=== PATIENT | female | born 1980 | race Caucasian/White ===

== ENCOUNTER 2017-09-18 14:47 | Observation (INO) | payer BC, SELFPAY ==
[2017-09-18 13:26] VITALS: BMI 26.4
--- NOTE | 2017-09-18 14:42 | PC.NURSE ---
Patient received 2 liters lactated ringers. Patient reports no improvements in condition and wishes to be admited. Dr. León notified. start vs as follows;109/76 hr-82, temp-98.3. Post bolus vs - BP-115/77, HR-78 Oz-95% Temp-98.3. Dr. León to admit patient. Roslyn Desir called with admission order and room number 265. report called to Bret Bermudez RN. patient transported via wheelchair to room. patient stable
[2017-09-18 14:48] VITALS: BMI 26.4
[2017-09-18 15:08] VITALS: BP 138/68; PULSE 91; RESP 18; TEMP 36.9; O2SAT 96
--- NOTE | 2017-09-18 15:27 | XR_ITS ---
XR chest 2V Ordering Physician: Jarett León MD Patient Age: 36 years: Female HISTORY: ITS.REASON: Shortness of breath Positive for flU. TECHNIQUE: PA and lateral chest COMPARISON :Previous rib series 02/18/2016 FINDINGS No consolidation or prominent findings. Upper normal markings at bases most likely reflecting overlying breast density and mild chronic changes along with the high contrast initial image technique. The left danny is upper normal prominence. Right danny generous but normal. Heart is normal in size. No CHF no pleural effusion or vascular congestion. Chest wall and T-spine unremarkable There are some scattered tiny calcified granuloma seen at the lung [place] bilaterally which are stable since prior rib series chest views IMPRESSION: Nothing definitely acute. Upper normal prominence of lung markings towards bases may reflect overlapping breast density & technique. Left danny upper normal prominence but likely stable.
--- NOTE | 2017-09-18 16:11 | HMH.HP ---
*Admission Date: 09/18/17 <ToniRhonda Wood 09/18/17 16:45> *Chief complaint: sore throat and cough <Rhonda Muñoz 09/18/17 16:45> *History of present illness: Ms Paz is a 36 year old female who is usually healthy who presented to the office of [facility] of 2-3 days duration of sore throat, non-productive cough, and fever . Her son was diagnosed with the Flu last week and she developed symptoms 09/16/17. She shared his Tamiflu but then became worse. Fever was high at 103.6. She was also SOB with wheezing, chest tightness, headache, and syncopal episodes for unknown duration. She describes some vomiting but no diarrhea. She has had minimal PO fluid intake for 2 days. She was seen in the office of [facility] on this date and sent to [facility] for IVF for dehydration. CBC revealed a WBC of 4.2 with 60.1% Grans and 33.2 % Lymphs. AFter receiving the IVF she did not feel any better. She voided x1. She continue with the severe headache, sore throat and cough. She was thus admitted for further evaluation and treatment. <Rhonda Muñoz 09/18/17 16:45> [facility] History I have reviewed the patient's past medical history: Yes <Rhonda Muñoz 09/18/17 16:45> Medical History: Reports:: Gastroesophageal Reflux Disease(GERD) Denies:: Atherosclerotic Heart Disease, Congestive Heart Failure, Chronic Obstructive Pulmonary Disease (COPD), Coronary Artery Disease, Cerebrovascular Accident, Depression, Diabetes Mellitus Type 2, Hypertension, Lung Disease, Palpitations, Transient Ischemic Attacks (TIA) <Rhonda Muñoz 09/18/17 16:45> Other Medical History: Reports: Hoarseness. Denies: Arthritis, Hypothyroidism <Rhonda Muñoz 09/18/17 16:45> Comment: bilateral bunionectomy 2014 <Rhonda Muñoz 09/18/17 16:45> - *Social History Smoking Status: Current every day smoker <Rhonda Muñoz 09/18/17 16:45> Tobacco Type: cigarettes <Rhonda Muñoz 09/18/17 16:45> # Packs/Day (cigarettes): 1 <Rhonda Muñoz 09/18/17 16:45> Alcohol Intake: never <Rhonda Muñoz 09/18/17 16:45> *Family Hx:: Hypertension <Rhonda Muñoz 09/18/17 16:45> Comment: premature ovarian failure at age 30 <Rhonda Muñoz 09/18/17 16:45> Review of Systems - Constitutional Reports body ache(s), Reports fatigue, Reports fever(s), Reports headache(s) <ToniRhonda 09/18/17 16:45> - ENT Reports headache(s), Reports sore throat <ToniRhonda 09/18/17 16:45> - *Cardiovascular Reports chest pain, Reports shortness of breath, Reports lightheadedness, Reports fainting, Denies irregular heart rhythm, Denies leg swelling <Zena Muñozhy 09/18/17 16:45> - *Respiratory Reports chest congestion, Reports cough, Reports shortness of breath, Reports pain with cough, Reports wheezing, Denies coughing up blood <Zena Muñozhy 09/18/17 16:45> - *Gastrointestinal Reports heartburn, Denies abdominal pain, Denies coffee ground vomit, Denies constipation, Denies loose stools, Denies nausea <Zena Muñozhy 09/18/17 16:45> - *Genitourinary Denies urinary incontinence, Denies urinary urgency <ToniRhonda 09/18/17 16:45> Comments: decrease in UOP <ToniRhonda 09/18/17 16:45> - *Musculoskeletal Reports muscle cramps (legs), Reports muscle weakness, Reports body aches <[facility] 09/18/17 16:45> - *Neurologic Reports abnormal walking, Reports fainting, Reports dizziness, Reports weakness <ToniRhonda 09/18/17 16:45> Meds Allergies Allergy/AdvReac Type Severity Reaction Status Date / Time No Known Allergies Allergy Unverified 08/01/17 15:16 <Jarett León - 09/18/17 17:34> Exam Vital signs and Labs for Last 24 Hours: Temp Pulse Resp BP Pulse Ox 98.5 F 91 H 18 138/68 96 09/18/17 15:08 09/18/17 15:08 09/18/17 15:08 09/18/17 15:08 09/18/17 15:08 Laboratory Results - last 24 hr 09/18/17 15:45: WBC 5.0, RBC 4.09 L, Hgb 12.1 L, Hct 37.0, MCV 90.5, MCH 29.5, MCHC 32.6, RDW 12.9, Plt Count 196, MPV 7.5, Neut % (Auto) 52.4
--- NOTE | 2017-09-18 16:15 | PC.NURSE ---
NICOL VALDEZ APRN IS AT THE BEDSIDE SPEAKING TO THE PATIENT.
[2017-09-18 16:24] LABS: Basophils % 0.2 % (0.1-2.0); Eosinophils # 0.1 K/mm3 (0.0-0.4); Eosinophils % 2.7 % (0.1-12.0); Hemoglobin 12.1 g/dL (12.2-16.2); Lymphocytes % 39.6 K/mm3 (10-50); Mean Corpuscular HGB Conc 32.6 g/dL (31.8-35.4); Mean Corpuscular Hemoglobin 29.5 pg (27.0-31.2); Mean Corpuscular Volume 90.5 fl (81-99); Mean Platelet Volume 7.5 fl (7.4-10.4); Monocytes # 0.3 K/mm3 (0.1-1.0); Monocytes % 5.1 % (1.7-9.3); Neutrophils # 2.6 K/mm3 (1.8-7.8); Neutrophils % 52.4 % (37.0-80.0); Platelet Count 196 K/mm3 (142-424); Red Blood Count 4.09 M/mm3 (4.20-5.40); Red Cell Distribution Width 12.9 % (11.5-17.5)
--- NOTE | 2017-09-18 16:26 | P.HP_ITS ---
*Admission Date: 09/18/17 <ToniRhonda Wood 09/18/17 16:45> *Chief complaint: sore throat and cough <Rhonda Muñoz 09/18/17 16:45> *History of present illness: Ms Paz is a 36 year old female who is usually healthy who presented to the office of [facility] of 2-3 days duration of sore throat, non-productive cough, and fever . Her son was diagnosed with the Flu last week and she developed symptoms 09/16/17. She shared his Tamiflu but then became worse. Fever was high at 103.6. She was also SOB with wheezing, chest tightness, headache, and syncopal episodes for unknown duration. She describes some vomiting but no diarrhea. She has had minimal PO fluid intake for 2 days. She was seen in the office of [facility] on this date and sent to [facility] for IVF for dehydration. CBC revealed a WBC of 4.2 with 60.1% Grans and 33.2 % Lymphs. AFter receiving the IVF she did not feel any better. She voided x1. She continue with the severe headache, sore throat and cough. She was thus admitted for further evaluation and treatment. <Rhonda Muñoz 09/18/17 16:45> [facility] History I have reviewed the patient's past medical history: Yes <Rhonda Muñoz 09/18 16:45> Medical History: Reports:: Gastroesophageal Reflux Disease(GERD) Denies:: Atherosclerotic Heart Disease, Congestive Heart Failure, Chronic Obstructive Pulmonary Disease (COPD), Coronary Artery Disease, Cerebrovascular Accident, Depression, Diabetes Mellitus Type 2, Hypertension, Lung Disease, Palpitations, Transient Ischemic Attacks (TIA) <Rhonda Muñoz 09/18/17 16:45 > Other Medical History: Reports: Hoarseness. Denies: Arthritis, Hypothyroidism <Rhonda Muñoz 09/18/17 16:45> Comment: bilateral bunionectomy 2014 <Rhonda Muñoz 09/18/17 16:45> - *Social History Smoking Status: Current every day smoker <Rhonda Muñoz 09/18/17 16:45> Tobacco Type: cigarettes <Rhonda Muñoz 09/18/17 16:45> # Packs/Day (cigarettes): 1 <Rhonda Muñoz 09/18/17 16:45> Alcohol Intake: never <Rhonda Muñoz 09/18/17 16:45> *Family Hx:: Hypertension <Rhonda Muñoz 09/18/17 16:45> Comment: premature ovarian failure at age 30 <Zena Muñozhy 09/18/17 16:45> Review of Systems - Constitutional Reports body ache(s), Reports fatigue, Reports fever(s), Reports headache(s) < Zena Muñozhy 09/18/17 16:45> - ENT Reports headache(s), Reports sore throat <ToniRhonda 09/18/17 16:45> - *Cardiovascular Reports chest pain, Reports shortness of breath, Reports lightheadedness, Reports fainting, Denies irregular heart rhythm, Denies leg swelling <Toni Rhonda 09/18/17 16:45> - *Respiratory Reports chest congestion, Reports cough, Reports shortness of breath, Reports pain with cough, Reports wheezing, Denies coughing up blood <ToniRhonda 09/18/17 16:45> - *Gastrointestinal Reports heartburn, Denies abdominal pain, Denies coffee ground vomit, Denies constipation, Denies loose stools, Denies nausea <ToniRhonda 09/18/17 16: 45> - *Genitourinary Denies urinary incontinence, Denies urinary urgency <ToniRhonda 09/18/17 16:45> Comments: decrease in UOP <ToniRhonda 09/18/17 16:45> - *Musculoskeletal Reports muscle cramps (legs), Reports muscle weakness, Reports body aches < MuñozRhonda 09/18/17 16:45> - *Neurologic Reports abnormal walking, Reports fainting, Reports dizziness, Reports weakness <ToniRhonda 09/18/17 16:45> Meds Allergies Allergy/AdvReac Type Severity Reaction Status Date / Time No Known Allergies Allergy Unverified 08/01/17 15:16 <Jarett León - 09/18/17 17:34>
[2017-09-18 16:33] LABS: Alanine Aminotransferase 21 U/L (12-78); Albumin Level 3.3 gm/dL (3.4-5.0); Alkaline Phosphatase 61 U/L (46-116); Anion Gap 9.9 mEq/L (5-15); Aspartate Amino Transferase 14 U/L (15-37); Bilirubin,Total 0.2 mg/dL (0.2-1.0); Blood Urea Nitrogen 7 mg/dL (7-18); Calcium 8.6 mg/dL (8.5-10.1); Carbon Dioxide 29 mmol/L (21.0-32.0); Chloride 105 mmol/L (98-107); Creatinine Clearance Estimated 107 mL/min (0-300); Creatinine,Serum 0.73 mg/dL (0.55-1.02); Estimated Glomerular Filt Rate 90 ml/min (>60); GFR (African American) 109 ML/MIN (>60); Globulin 3.3 gm/dl (1.3-3.2); Glucose 80 mg/dL (74-106); Potassium 3.9 mmoL/L (3.5-5.1); Sodium 140 mmol/L (136-145); Total Protein,Serum 6.6 gm/dL (6.4-8.2)
[2017-09-18 19:56] VITALS: PULSE 77; PULSE 78
[2017-09-18 20:00] VITALS: O2SAT 94
[2017-09-19] VITALS: BP 91/56; PULSE 61; RESP 16; TEMP 36.4; O2SAT 94
[2017-09-19 04:00] VITALS: BP 89/55; PULSE 61; RESP 18; TEMP 36.7
[2017-09-19 06:20] VITALS: PULSE 61; PULSE 63
[2017-09-19 06:29] LABS: Strep Scrn Group A (Rapid) Negative (Negative)
--- NOTE | 2017-09-19 07:26 | P.CONPHA_ITS ---
[facility] Pharmacy VTE Monitoring - Patient Demographics Admission date: 09/18/17 Report Date: 09/19/17 Time: 07:26 Allergies/Adverse Reactions: Patient Allergies No Known Allergies Allergy (Unverified 08/01/17 15:16) Height: 1.55 m Weight: 63.503 kg Patient Problems: Current Active Problems Influenza A (Acute) Dehydration (Acute) Sleep disorder (Chronic) - VTE Risk Labs: VTE Related Lab Results Hgb 12.1 g/dL (12.2-16.2) L 09/18/17 15:45 Hct 37.0 % (37.0-47.0) 09/18/17 15:45 Plt Count 196 K/mm3 (142-424) 09/18/17 15:45 BUN 7 mg/dL (7-18) 09/18/17 15:45 Creatinine 0.73 mg/dL (0.55-1.02) 09/18/17 15:45 Estimated Creat Clear 107 mL/min (0-300) 09/18/17 15:45 Was VTE Risk Assessment Performed: Yes VTE Score: 1 VTE Risk Level: Very Low Risk Clinical Trial Participant: No - Prophylaxis VTE Prophylaxis Ordered?: Yes Types of VTE Prophylaxis: TEDS Knee High
[2017-09-19 08:00] VITALS: BP 89/54; RESP 18; TEMP 36.7; O2SAT 94
--- NOTE | 2017-09-19 08:06 | HMH.ACPN2 ---
<Rhonda Muñoz - Last Filed: 09/19/17 08:06> Internal Medicine - PN: Subj *Date: 09/19/17 *Time: 08:06 Interval history: Patient did not sleep much last night due to cough and headache; she has just moved down from ICU to regular room on second floor; she fell prior to the move states she tripped over her IV tubing; she landed on her right knee; she states it does not hurt at present; had pain medicine and cough medicine as frequently as is ordered; she is voiding QS; bowels have not moved; she states she vomited ?2 yesterday; dry cough remains very frequent causing her to burn in her chest and with soreness in her abdomen Exam Vital signs and Labs for Last 24 Hours: Temp Pulse Resp BP Pulse Ox 98.1 F 63 18 89/54 94 L 09/19/17 08:00 09/19/17 06:20 09/19/17 08:00 09/19/17 08:00 09/19/17 08:00 Laboratory Results - last 24 hr 09/18/17 15:45: WBC 5.0, RBC 4.09 L, Hgb 12.1 L, Hct 37.0, MCV 90.5, MCH 29.5, MCHC 32.6, RDW 12.9, Plt Count 196, MPV 7.5, Neut % (Auto) 52.4, Lymph % (Auto) 39.6, [place] % (Auto) 5.1, Eos % (Auto) 2.7, Baso % (Auto) 0.2, Neut # (Auto) 2.6, Lymph # (Auto) 2.0, [place] # (Auto) 0.3, Eos # (Auto) 0.1, Baso # (Auto) 0.0 09/18/17 15:45: Sodium 140, Potassium 3.9, Chloride 105, Carbon Dioxide 29, Anion Gap 9.9, BUN 7, Creatinine 0.73, Estimated Creat Clear 107, Estimated GFR 90, Est GFR ( Amer) 109, Glucose 80, Calcium 8.6, Total Bilirubin 0.2, AST 14 L, ALT 21, Alkaline Phosphatase 61, Total Protein 6.6, Albumin 3.3 L, Globulin 3.3 H, Albumin/Globulin Ratio 1.0 L 09/19/17 05:20: Group A Strep Rapid Negative I & O for Last 24 hours: Intake & Output 09/16/17 09/17/17 09/18/17 09/19/17 11:59 11:59 11:59 11:59 Intake Total 1000 / 1000 Balance 1000 / 1000 Weight 140 lb - Constitutional no acute distress Comments: Eyes appear more clear this morning: She is awake and appears comfortable in the bed; she does continue with dry cough - *Routine Respiratory Exam Present: wheezes. Absent: crackles Comments: Minimal wheeze bilaterally - *Routine Cardiovascular Exam Present: RRR - *Routine Abdominal Exam Present: soft, normoactive bowel sounds, tenderness (Mild and diffuse) - *Routine Extremities Exam Present: full ROM. Absent: edema Comments: Right knee at site of fall is minimally tender without erythema or edema; full range of motion - *Routine Neurological Exam Present: alert, oriented X3 Assessment and Plan (1) Influenza A Current visit: Yes Status: Acute Category: Medical Code(s): J10.1 - Influenza due to other identified influenza virus with other respiratory manifestations (2) Dehydration Current visit: Yes Status: Acute Category: Medical Code(s): E86.0 - Dehydration (3) Sleep disorder Current visit: Yes Status: Chronic Category: Medical Code(s): G47.9 - Sleep disorder, unspecified - Assessment and plan all Dx Assessment and Plan for all problems:: She still has symptoms associated with the flu; we will continue with IV fluids and meds for cough and headache; possibly home some time today; will add Tessalon Perles for cough <Jarett León - Last Filed: 09/19/17 11:25> Internal Medicine - PN: Subj *Date: 09/19/17 *Time: 11:25 Exam Vital signs and Labs for Last 24 Hours: Temp Pulse Resp BP Pulse Ox 98.1 F 75 18 89/54 94 L 09/19/17 08:00 09/19/17 09:49 09/19/17 08:00 09/19/17 08:00 09/19/17 08:00 Laboratory Results - last 24 hr 09/18/17 15:45: WBC 5.0, RBC 4.09 L, Hgb 12.1 L, Hct 37.0, MCV 90.5, MCH 29.5, MCHC 32.6, RDW 12.9, Plt Count 196, MPV 7.5, Neut % (Auto) 52.4, Lymph % (Auto) 39.6, [place] % (Auto) 5.1, Eos % (Auto) 2.7, Baso % (Auto) 0.2, Neut # (Auto) 2.6, Lymph # (Auto) 2.0, [place] # (Auto) 0.3, Eos # (Auto) 0.1, Baso # (Auto) 0.0 09/18/17 15:45: Sodium 140, Potassium 3.9, Chloride 105, Carbon Dioxide 29, Anion Gap 9.9, BUN 7, Creatinine 0.73, Estimated Creat Clear 107, Estimated GF
[2017-09-19 09:49] VITALS: PULSE 70; PULSE 75
--- NOTE | 2017-09-20 08:22 | HMH.DCSUM ---
General - General Admission date: 09/18/17 Discharge date: 09/19/17 HPI HPI: Ms Paz is a 36 year old female who is usually healthy who presented to the office of [facility] of 2-3 days duration of sore throat, non-productive cough, and fever . Her son was diagnosed with the Flu last week and she developed symptoms 09/16/17. She shared his Tamiflu but then became worse. Fever was high at 103.6. She was also SOB with wheezing, chest tightness, headache, and syncopal episodes for unknown duration. She describes some vomiting but no diarrhea. She has had minimal PO fluid intake for 2 days. She was seen in the office of [facility] on this date and sent to [facility] for IVF for dehydration. CBC revealed a WBC of 4.2 with 60.1% Grans and 33.2 % Lymphs. AFter receiving the IVF she did not feel any better. She voided x1. She continued with the severe headache, sore throat and cough. She was thus admitted for further evaluation and treatment. Objective Vital signs: Temp Pulse Resp BP Pulse Ox 98.1 F 75 18 89/54 94 L 09/19/17 08:00 09/19/17 09:49 09/19/17 08:00 09/19/17 08:00 09/19/17 08:00 Narrative: - Constitutional no acute distress Comments: appears not to feel well - *Routine HEENT Exam Head: Present: normocephalic, atraumatic Eye: Present: EOMI, PERRL. Absent: conjunctival icterus, scleral injection ENT: Present: mucous membranes moist, oropharynx clear, nares patent, sinus tenderness - *Routine Neck Exam Present: supple, full ROM. Absent: carotid bruit, lymphadenopathy, thyromegaly - *Routine Respiratory Exam Present: wheezes. Absent: respiratory distress Comments: bilateral wheezing and crackles thoughout posteriorly - *Routine Cardiovascular Exam Present: RRR - *Routine Abdominal Exam Present: soft, normoactive bowel sounds. Absent: tenderness, distended, guarding - *Routine Extremities Exam Present: full ROM. Absent: edema, calf tenderness - *Routine Neurological Exam Present: alert, oriented X3, moving all extremities Hospital Course Hospital Course: She was started on IV fluids and meds for cough and headache as well as Tamiflu. Her CXR showed nothing acute. She was doing better by the next day. She was stable to be discharged home. DS: Diagnosis - Discharge Diagnosis (1) Influenza A Status: Acute (2) Dehydration Status: Acute (3) Sleep disorder Status: Chronic Meds Home Medications Medication Instructions Recorded Confirmed Type Trazodone HCl 150 mg PO HS 09/18/17 09/19/17 History Allergies Allergy/AdvReac Type Severity Reaction Status Date / Time No Known Allergies Allergy Unverified 08/01/17 15:16 Discharge Plan - Patient Discharge Instructions ACTIVITY: Continue current activity DIET: continue same diet Additional Instructions: Patient needs a work excuse for 09/18/17 through 09/22/17. Patient Instructions: Influenza - Follow up Plan Follow up with: Jarett León MD [Primary Care Provider] - 2 weeks Disposition: Home, Self-Retirement Medications: Home Medications Medication Instructions Recorded Confirmed Type Trazodone HCl 150 mg PO HS 09/18/17 09/19/17 History Prescriptions/Medication Reconciliation: New Oseltamivir Phosphate [Tamiflu 75mg Capsule] 75 mg PO BID #10 capsule Benzonatate [Benzonatate 200mg Cap] 200 mg PO TIDP PRN #30 cap PRN Reason: Cough Promethazine/Dextromethorphan [Promethazine-Dm Syrup] 5 ml PO QIDP PRN #240 ml PRN Reason: Cough Continue Trazodone HCl 150 mg PO HS
--- NOTE | 2017-09-20 08:26 | P.DS_ITS ---
General - General Admission date: 09/18/17 Discharge date: 09/19/17 HPI HPI: Ms Paz is a 36 year old female who is usually healthy who presented to the office of [facility] of 2-3 days duration of sore throat, non-productive cough, and fever . Her son was diagnosed with the Flu last week and she developed symptoms 09/16/17. She shared his Tamiflu but then became worse. Fever was high at 103.6. She was also SOB with wheezing, chest tightness, headache, and syncopal episodes for unknown duration. She describes some vomiting but no diarrhea. She has had minimal PO fluid intake for 2 days. She was seen in the office of [facility] on this date and sent to [facility] for IVF for dehydration. CBC revealed a WBC of 4.2 with 60.1% Grans and 33.2 % Lymphs. AFter receiving the IVF she did not feel any better. She voided x1. She continued with the severe headache, sore throat and cough. She was thus admitted for further evaluation and treatment. Objective Vital signs: Temp Pulse Resp BP Pulse Ox 98.1 F 75 18 89/54 94 L 09/19/17 08:00 09/19/17 09:49 09/19/17 08:00 09/19/17 08:00 09/19/17 08:00 Narrative: - Constitutional no acute distress Comments: appears not to feel well - *Routine HEENT Exam Head: Present: normocephalic, atraumatic Eye: Present: EOMI, PERRL. Absent: conjunctival icterus, scleral injection ENT: Present: mucous membranes moist, oropharynx clear, nares patent, sinus tenderness - *Routine Neck Exam Present: supple, full ROM. Absent: carotid bruit, lymphadenopathy, thyromegaly - *Routine Respiratory Exam Present: wheezes. Absent: respiratory distress Comments: bilateral wheezing and crackles thoughout posteriorly - *Routine Cardiovascular Exam Present: RRR - *Routine Abdominal Exam Present: soft, normoactive bowel sounds. Absent: tenderness, distended, guarding - *Routine Extremities Exam Present: full ROM. Absent: edema, calf tenderness - *Routine Neurological Exam Present: alert, oriented X3, moving all extremities Hospital Course Hospital Course: She was started on IV fluids and meds for cough and headache as well as Tamiflu. Her CXR showed nothing acute. She was doing better by the next day. She was stable to be discharged home. DS: Diagnosis - Discharge Diagnosis (1) Influenza A Status: Acute (2) Dehydration Status: Acute (3) Sleep disorder Status: Chronic Meds Home Medications Medication Instructions Recorded Confirmed Type Trazodone HCl 150 mg PO HS 09/18/17 09/19/17 History Allergies Allergy/AdvReac Type Severity Reaction Status Date / Time No Known Allergies Allergy Unverified 08/01/17 15:16 Discharge Plan - Patient Discharge Instructions ACTIVITY: Continue current activity DIET: continue same diet Additional Instructions: Patient needs a work excuse for 09/18/17 through 09/22/17. Patient Instructions: Influenza - Follow up Plan Follow up with: Jarett León MD [Primary Care Provider] - 2 weeks Disposition: Home, Self-Assisted Medications: Home Medications Medication Instructions Recorded Confirmed Type Trazodone HCl 150 mg PO HS 09/18/17 09/19/17 History Prescriptions/Medication Reconciliation: New Oseltamivir Phosphate [Tamiflu 75mg Capsule] 75 mg PO BID #10 capsule
== END 2017-09-19 13:39 | disposition home or self-care (01) ==
LOC: ICU 14:48 → 2ND 09-19 07:01
PROVIDERS: Nurse Practitioner Family; Admitting Provider Family Medicine; PCP Family Medicine; Visit Provider Family Medicine
DX: J10.1 Influenza due to other identified influenza virus with other respiratory manifestations (principal); E86.0 Dehydration; F17.210 Nicotine dependence, cigarettes, uncomplicated; Z82.49 Family history of ischemic heart disease and other diseases of the circulatory system; G47.9 Sleep disorder, unspecified; S89.91XA Unspecified injury of right lower leg, initial encounter; W18.30XA Fall on same level, unspecified, initial encounter; Z79.899 Other long term (current) drug therapy
CPT/HCPCS: 36415; 71046; 80053; 85025; 87430; 94640; 96361; G0378; J2405

== ENCOUNTER → 2017-09-29 13:12 | Outpatient (CLI) | payer BC, SELFPAY | PROVIDERS: PCP Family Medicine; Visit Provider Registered Nurse | DX: R40.0 Somnolence (principal); R06.83 Snoring | CPT/HCPCS: G0399 ==

== ENCOUNTER → 2020-04-22 11:01 | Outpatient (CLI) | payer BC, SELFPAY ==
[2020-04-22 11:47] LABS: Basophils % 0.3 % (0.1-2.0); Eosinophils # 0.1 K/mm3 (0.0-0.4); Eosinophils % 1.7 % (0.1-12.0); Hemoglobin 14.2 g/dL (12.2-16.2); Lymphocytes # 2.5 K/mm3 (0.7-4.5); Lymphocytes % 36.2 % (10-50); Mean Corpuscular HGB Conc 34.7 g/dL (31.8-35.4); Mean Corpuscular Hemoglobin 31.8 pg (27.0-31.2); Mean Corpuscular Volume 91.7 fl (81-99); Mean Platelet Volume 7.1 fl (7.4-10.4); Monocytes # 0.3 K/mm3 (0.1-1.0); Monocytes % 4.5 % (1.7-9.3); Neutrophils % 57.2 % (37.0-80.0); Platelet Count 254 K/mm3 (142-424); Red Blood Count 4.47 M/mm3 (4.20-5.40); Red Cell Distribution Width 13.2 % (11.5-17.5)
[2020-04-23 13:37] LABS: Covid-19 Nasal PCR Sendout Lex NOT DETECTED
== END ==
PROVIDERS: PCP Family Medicine; Visit Provider Nurse Practitioner Family
DX: Z03.818 Encounter for observation for suspected exposure to other biological agents ruled out (principal)
CPT/HCPCS: 36415; 85025; U0004

== ENCOUNTER 2020-08-19 10:58 | Emergency (ER) | payer BC, SELFPAY ==
[2020-08-19 10:58] VITALS: BP 130/84; PULSE 72; RESP 14; TEMP 36.4; O2SAT 98; BMI 24.5
--- NOTE | 2020-08-19 11:32 | HMH.EDUTC ---
[facility] [place] Disposition Clinical Impression: Viral syndrome, Exposure to COVID-19 virus Disposition: Home, Self-Care Condition on Discharge: Good Instructions: Preventing the Spread of Coronavirus Discharge Instructions Additional Instructions: Drink plenty of fluids. Take tylenol for pain or fever. Return if you begin to have difficulty breathing. Follow up with your regular doctor. GO TO THE ER FOR ANY WORSENING SYMPTOMS Referrals: Jarett León MD [Primary Care Provider] - Time of Disposition: 11:36 Medical Decision Making - Medical Records Medical records reviewed: No: I reviewed the patient's medical records. - Mo Inquiry Pt receiving controlled substance: No Vital Signs: 08/19/20 10:58 08/19/20 11:37 Temperature 97.5 F L 97.5 F L Temperature Source Oral Oral Pulse Rate 72 Pulse Rate [Right] 72 Respiratory Rate 14 14 Blood Pressure 130/84 Blood Pressure [Right Arm] 130/84 Blood Pressure Mean [Right Arm] 99 02 Sat by Pulse Oximetry 98 Oxygen Delivery Method Room Air [facility] [place] HPI - General Stated complaint: Covid test Time Seen by Provider: 08/19/20 11:34 Mode of Arrival: Ambulatory Source of Information: Patient Description of Symptoms (Recalled from Triage Doc. by RN): pt requesting covid test. pt c/o head congestion that started monday HEENT Symptoms (Recalled from RN notes): No Resp Symptoms (Recalled from RN notes): Yes Skin Symptoms (Recalled from RN notes): No MS Symptoms (Recalled from RN notes): No Functional Status (Recalled from RN notes): wnl - History of Present Illness Provider Complaint: She states that she has some mild sinus congestion, headache and a cough. She states that she may have been exposed to covid-19 thru her work. She denies any fever, chills, or body aches. - Related Data Home Medications Medication Instructions Recorded Confirmed Trazodone HCl 150 mg PO HS 09/18/17 09/19/17 Previous Rx's Medication Instructions Recorded Benzonatate [Benzonatate 200mg Cap] 200 mg PO TIDP PRN #30 cap 09/19/17 Oseltamivir Phosphate [Tamiflu 75 mg PO BID #10 capsule 09/19/17 75mg Capsule] Promethazine/Dextromethorphan 5 ml PO QIDP PRN #240 ml 09/19/17 [Promethazine-Dm Syrup] Allergies Allergy/AdvReac Type Severity Reaction Status Date / Time No Known Allergies Allergy Verified 08/19/20 11:07 - Worker's Comp Is this a Worker's Comp case?: No [facility] History - Hepatitis A Screen Drug use history?: No High risk sexual behaviors?: No History of sexually transmitted infection?: No Currently employed?: No Childcare worker?: No Do you have indoor plumbing?: Yes Do you have electricity?: Yes Attestation statement:: This patient has been screened for Hepatitis A risk factors. I have reviewed the patient's past medical history: Yes Medical History: Reports:: Gastroesophageal Reflux Disease(GERD) Denies:: Atherosclerotic Heart Disease, Cancer, Congestive Heart Failure, Chronic Obstructive Pulmonary Disease (COPD), Coronary Artery Disease, Cerebrovascular Accident, Depression, Diabetes Mellitus Type 1, Diabetes Mellitus Type 2, Hypertension, Lung Disease, MRSA, Palpitations, Transient Ischemic Attacks (TIA) Other Medical History: Reports: Hoarseness. Denies: Arthritis, Hypothyroidism Laterality Cases: Bilateral: Other Other Surgeries: Yes: Appendectomy, Other Amputation: No Fractures: No Comment: bilateral bunionectomy 2014 - Social History Smoking Status: Current every day smoker Tobacco Type: cigarettes # Packs/Day (cigarettes): 1 Alcohol Intake: never Alcohol Intake Frequency:: holidays/special occasions only Occupational Status: employed Housing: house Household Members: spouse, children - Psychiatric History Pschychiatric History:: Denies:: Depression Family Hx:: Hypertension Comment: premature ovarian failure at age 30 ROS Obtained: Yes All systems reviewed & no additional complaints - Constitutional Constitutional:
[2020-08-19 11:37] VITALS: BP 130/84; PULSE 72; RESP 14; TEMP 36.4; O2SAT 98
== END 2020-08-19 11:41 | disposition home or self-care (01) ==
PROVIDERS: Emergency Provider Nurse Practitioner Family; PCP Family Medicine
DX: Z20.822 Contact with and (suspected) exposure to COVID-19 (principal); B34.9 Viral infection, unspecified; K21.9 Gastro-esophageal reflux disease without esophagitis; E03.9 Hypothyroidism, unspecified; Z79.899 Other long term (current) drug therapy; F17.210 Nicotine dependence, cigarettes, uncomplicated
CPT/HCPCS: 99202; G0463; U0003

== ENCOUNTER → 2021-04-27 14:01 | Outpatient (CLI) | payer OTHER, SELFPAY | PROVIDERS: PCP Family Medicine; Visit Provider Nurse Practitioner | DX: Z20.822 Contact with and (suspected) exposure to COVID-19 (principal) | CPT/HCPCS: C9803; U0003; U0005 ==

== ENCOUNTER → 2021-09-08 11:42 | Outpatient (CLI) | payer BC, SELFPAY | PROVIDERS: PCP Family Medicine; Visit Provider Nurse Practitioner | DX: Z20.822 Contact with and (suspected) exposure to COVID-19 (principal) | CPT/HCPCS: C9803; U0003; U0005 ==

== ENCOUNTER → 2023-05-05 08:41 | Outpatient (CLI) | payer BC, SELFPAY | PROVIDERS: PCP Family Medicine; Visit Provider Physician Assistant | DX: Z00.00 Encounter for general adult medical examination without abnormal findings (principal) ==